=== PATIENT | male | born 1935 | race Caucasian/White ===

== ENCOUNTER → 2019-03-29 | Outpatient (CLI) | payer MEDICARE, OTHER ==
[~2019-03-29] MED LIST: REGADENOSON 0.4 MG/5 ML DISP.SYRIN. IV ONE
--- NOTE | 2019-03-29 13:34 | RAD ---
MR#: [id number] Date of Study: 03/29/2019 Ordering Physician: TAMELA PACHECO Referring Physician: CORNELIA VELASQUEZ Tech: ESAU Nicole APPROVED REPORT Test Type: Pharmacological Stress Nurse/Tech: ESAU Nicole Test Indications: AFIB Cardiac History: AFIB Medications: SEE EHR Medical History: SEE EHR Resting ECG: SR Resting Heart Rate: 68 bpm Resting Blood Pressure: 129/76mmHg Pretest Chest Pain: None Nurse/Tech Notes Consent: The procedure was explained to the patient in lay terms. Informed consent was witnessed. Breezy eout was entered into [facility]. History and Stress Test performed by ESAU Nicole Pharm. Details Pharmacologic stress testing was performed using 0.4mg per 5ml of regadenoson given intravenously ove r 7-10 seconds. POST EXERCISE Max HR: 80 bpm Max Blood Pressure: 115/62mmHg Blood Pressure response to exercise: Normal blood pressure response during stress. Chest Pain: No. INTERPRETATION Stress EKG Conclusion: No acute changes with stress Imaging Protocol IMAGE PROTOCOL: Rest Tc-99m/stress Tc-99m 1 day Rest: Stress: Viability: Radiopharm.Tc99m RqtcedadiPc14d Sestamibi Sioj39gAz 33mCi Duration 15min. 10min. Img Date 03/29/2019 03/29/2019 Inj-Img Vpks55yth. 60min. Rest Admin Site:IV - Right AntecubitalAdministrator: ESAU Nicole Stress Admin Site: IV - Right AntecubitalAdministrator: ESAU Nicole STRESS DATA End Diast. Vol.119.0mlAv. Heart Rate71.0bpm End Syst. Vol.45.0mlCO Index BSA0.0L/min Myocardial Ctbb680.0gEject. Cdsiawrg52.0% Stress Rates Pk. Fill Rate1.92EDV/secLVtime Pk. Fill 101.10msec Pk. Empty Rate3.06ESV/secLVtime Pk. Fwcvy760.31msec 05/25 Pk. Fill1.42EDV/sec Stress Scores Regional WT1.00Summed WT4.00 Regional WM0.00Summed WM2.00 The rest and stress images show normal perfusion, normal contraction and thickening. LV Perf. Quant 17 Seg. SSS0.00 17 Seg. SRS0.00 17 Seg. SDS0.00 Stress Defect Extent (% LAD)0.00Rest Defect Extent (% LAD)0.00Rev. Defect Extent (% LAD)0.00 Stress Defect Extent (% LCX) 0.00Rest Defect Extent (% LCX)0.00Rev. Defect Extent (% LCX)0.00 Stress Defect Extent (% RCA)0.00Rest Defect Extent (% RCA)0.00Rev. Defect Extent (% RCA)0.00 Stress Defect Extent (% URIAH)0.00Rest Defect Extent (% URIAH)0.00Rev. Defect Extent (% URIAH)0.00 Other Information Quality:Good Overall Exercise Capacity: Average Risk Assessment: Low Risk Conclusion 1. No evidence of EKG changes with stress testing. 2. Normal perfusion at stress/rest. 3. Low risk study. 4. EF > 60%. Signed by : Jesus Fowler, Electronically Approved : 03/29/2019 13:34:41
== END | disposition home or self-care (01) ==
LOC: NM 07:23
PROVIDERS: ATTEND Internal Medicine Cardiovascular Disease
DX: I48.91 Unspecified atrial fibrillation (principal)
CPT/HCPCS: 78452; 93017; A9500; J2785

== ENCOUNTER → 2020-09-23 | Outpatient (CLI) | payer MEDICARE, OTHER ==
--- NOTE | 2020-09-23 16:53 | CARD ---
MR#: [id number] Date of Study: 09/23/2020 Ordering Physician: TAMELA PACHECO, Referring Physician: TAMELA PACHECO, Tech: Antoinette Kulkarni RDCS APPROVED REPORT EXAM: Two-dimensional and M-mode echocardiogram with Doppler and color Doppler. Other Information Quality : Fair Rhythm : NSR INDICATION Atrial Fibrillation 2D DIMENSIONS RVDd2.7 (2.9-3.5cm)Left Atrium(2D)3.0 (1.6-4.0cm) IVSd0.9 (0.7-1.1cm)Aortic Root(2D)2.6 (2.0-3.7cm) LVDd5.1 (3.9-5.9cm)LVOT Diameter2.0 (1.8-2.4cm) PWd0.9 (0.7-1.1cm)LVDs3.2 (2.5-4.0cm) FS (%) 36.9 %SV82.0 ml LVEF(%)65.0 (>50%) Aortic Valve AoV Peak Abhinav.151.5cm/sAoV VTI26.6cm AO Peak GR.9.2mmHgLVOT Peak Abhinav.122.0cm/s LVOT VTI 21.88cmAO Mean GR.5mmHg DENNYS (VMAX)2.70cq9BJO (VTI)2.56cm2 AI P 1/2 Sagc677so Mitral Valve MV E Knzhvjci11.5cm/sMV DECEL STQK902wa MV A Dcelsvud435.5cm/sE/A Ratio0.5 Tricuspid Valve TR P. Tkxefcgg104nx/sRAP LMUPFDUC5qxYw TR Peak Gr.07lfFeISRC25khTk Pulmonary Vein S1 Wjqawcrh47.5cm/sD2 Rdhqzpuu37.2cm/s LEFT VENTRICLE The left ventricle is normal size. There is normal left ventricular wall thickness. The left ventricu lar systolic function is normal and the ejection fraction is within normal range. The Ejection Fracti on is 60-65%. There is normal LV segmental wall motion. Transmitral Doppler flow pattern is Grade I-a bnormal relaxation pattern. RIGHT VENTRICLE The right ventricle cavity is mildly decreased. The right ventricular systolic function is normal. ATRIA The left atrium size is normal. The right atrium size is normal. The interatrial septum is intact wit h no evidence for an atrial septal defect or patent foramen ovale as noted on 2-D or Doppler imaging. AORTIC VALVE The aortic valve is moderately thickened but opens well. Doppler and Color Flow revealed mild aortic regurgitation. There is no significant aortic valvular stenosis. MITRAL VALVE The mitral valve is calcified but opens well. Mitral annular calcification is mild. There is no evide nce of mitral valve prolapse. There is no mitral valve stenosis. Doppler and Color-flow revealed trac e to mild mitral regurgitation. TRICUSPID VALVE The tricuspid valve is normal in structure and function. Doppler and Color Flow revealed trace tricus pid regurgitation. The PA pressure was estimated at 26 mmHg. There is no tricuspid valve stenosis. PULMONIC VALVE The pulmonic valve is not well visualized. Doppler and Color Flow revealed no pulmonic valvular regur gitation. There is no pulmonic valvular stenosis. GREAT VESSELS The aortic root is normal in size. The ascending aorta is normal in size. The IVC was not visualized. PERICARDIAL EFFUSION There is no evidence of significant pericardial effusion. Critical Notification Critical Value: No <Conclusion> The left ventricle is normal size. The left ventricular systolic function is normal and the ejection fraction is within normal range. The Ejection Fraction is 60-65%. Doppler and Color Flow revealed mild aortic regurgitation. There is no significant aortic valvular stenosis. Doppler and Color-flow revealed trace to mild mitral regurgitation. Doppler and Color Flow revealed trace tricuspid regurgitation. The PA pressure was estimated at 26 mmHg. Signed by : Troy Flores MD Electronically Approved : 09/23/2020 16:52:32
== END ==
LOC: ECHO 10:34
PROVIDERS: ATTEND Internal Medicine Cardiovascular Disease
DX: I34.0 Nonrheumatic mitral (valve) insufficiency (principal); I48.0 Paroxysmal atrial fibrillation
CPT/HCPCS: 93306